=== PATIENT | female | born 1940 | race Asian ===

== ENCOUNTER 2019-02-25 14:22 | Inpatient (IN) | payer OTHER ==
[~2019-02-25] VITALS: Ht 167.6 cm; Wt 59.9 kg
[2019-02-25 14:52] VITALS: Ht 167.6 cm; Wt 59.9 kg
[2019-02-25 16:43] LABS: ALBUMIN 3.4 g/dL (3.4-5.0); ALKALINE PHOSPHATASE 57 U/L (46-116); ALT/SGPT 29 U/L (14-59); AST/SGOT 21 U/L (15-37); BILIRUBIN TOTAL 0.52 mg/dL (0.20-1.00); CALCIUM 9.3 mg/dL (8.5-10.1); CARBON DIOXIDE 31.5 mmol/L (21-32); CHLORIDE SERUM 101 mmol/L (98-107); CREATININE SERUM 1.2 mg/dL (0.6-1.0); GLUCOSE SERUM 217 mg/dL (74-106); SODIUM SERUM 139 mmol/L (136-145); TOTAL PROTEIN, SERUM 7.6 g/dL (6.4-8.2)
[2019-02-25 16:44] LABS: POTASSIUM SERUM 2.8 mmol/L (3.5-5.1)
[2019-02-25 16:54] LABS: BASOPHIL % 0.1 % (0-2); PLATELET COUNT 204 x10^3mcL (130-400); RED CELL DISTRIBUTION WIDTH 13.9 % (11.5-14.5)
[2019-02-25] MEDS ORDERED: ASPIR 8181 MG PO (18:25)
[2019-02-25] MEDS ORDERED: NOR10 PO (18:25)
[2019-02-25] MEDS ORDERED: HYDROCHLOROTHIA25 MG PO (18:25)
[2019-02-25] MEDS ORDERED: LOSARTAN POTASS50 M1 PO (18:25)
[2019-02-25 19:12] LABS: FREE T4 0.96 ng/dL (0.76-1.46); FREE THYROXINE INDEX 2.2 ug/dL (1.4-4.5); T4(THYROXINE) 6.2 ug/dL (4.7-13.3)
[2019-02-25 19:19] LABS: T3 TOTAL 1.02 ng/mL
[2019-02-25 19:29] LABS: CHOLESTEROL/HDL RATIO 2.2; MAGNESIUM 1.6 mg/dL (1.8-2.4); PHOSPHOROUS 1.8 mg/dL (2.5-4.9)
[2019-02-25 20:38] VITALS: BP 146/81
[2019-02-25 23:49] VITALS: BP 122/67
[2019-02-26 06:01] VITALS: BP 122/71
[2019-02-26 06:07] LABS: PLATELET COUNT 178 x10^3mcL (130-400); RED CELL DISTRIBUTION WIDTH 14.4 % (11.5-14.5)
[2019-02-26 06:57] LABS: BASOPHIL % 0 % (0-2)
[2019-02-26 08:25] LABS: CALCIUM 8.5 mg/dL (8.5-10.1); CARBON DIOXIDE 29.1 mmol/L (21-32); CHLORIDE SERUM 103 mmol/L (98-107); CREATININE SERUM 1.1 mg/dL (0.6-1.0); GLUCOSE SERUM 151 mg/dL (74-106); MAGNESIUM 1.4 mg/dL (1.8-2.4); PHOSPHOROUS 2.9 mg/dL (2.5-4.9); SODIUM SERUM 141 mmol/L (136-145)
[2019-02-26 08:42] LABS: POTASSIUM SERUM 2.9 mmol/L (3.5-5.1)
[2019-02-26 09:39] VITALS: BP 91/60
[2019-02-26 12:33] VITALS: BP 146/73
[2019-02-26 17:35] VITALS: BP 131/67
[2019-02-26 22:12] LABS: microscopic required? YES; urine erythrocyte 1+ (NEGATIVE)
[2019-02-27 06:33] LABS: BASOPHIL % 0.1 % (0-2); PLATELET COUNT 161 x10^3mcL (130-400); RED CELL DISTRIBUTION WIDTH 14.2 % (11.5-14.5)
[2019-02-27 06:41] VITALS: BP 99/58
[2019-02-27 07:04] LABS: CALCIUM 8.3 mg/dL (8.5-10.1); CARBON DIOXIDE 30.8 mmol/L (21-32); CHLORIDE SERUM 105 mmol/L (98-107); CREATININE SERUM 1.1 mg/dL (0.6-1.0); GLUCOSE SERUM 112 mg/dL (74-106); PHOSPHOROUS 2.6 mg/dL (2.5-4.9); SODIUM SERUM 141 mmol/L (136-145)
[2019-02-27 08:01] LABS: POTASSIUM SERUM 2.8 mmol/L (3.5-5.1)
[2019-02-27 09:09] VITALS: BP 118/65
[2019-02-27 13:16] VITALS: BP 106/63
[2019-02-27 17:26] VITALS: BP 109/65
[2019-02-27 21:03] VITALS: BP 113/65
[2019-02-28 05:10] VITALS: BP 125/70
[2019-02-28 08:09] LABS: BASOPHIL % 0.1 % (0-2); PLATELET COUNT 182 x10^3mcL (130-400); RED CELL DISTRIBUTION WIDTH 14.4 % (11.5-14.5)
[2019-02-28 08:22] LABS: CALCIUM 8.3 mg/dL (8.5-10.1); CARBON DIOXIDE 28.4 mmol/L (21-32); CHLORIDE SERUM 107 mmol/L (98-107); GLUCOSE SERUM 134 mg/dL (74-106); MAGNESIUM 1.9 mg/dL (1.8-2.4); PHOSPHOROUS 1.9 mg/dL (2.5-4.9); POTASSIUM SERUM 3.3 mmol/L (3.5-5.1); SODIUM SERUM 143 mmol/L (136-145)
[2019-02-28] MEDS ORDERED: NOR5 PO (09:21)
[2019-02-28] MEDS ORDERED: ELIQUIS5 MG PO (09:22)
[2019-02-28] MEDS ORDERED: LEVAQUIN750 MG PO (09:22)
[2019-02-28 09:41] VITALS: BP 112/62
[2019-02-28 10:02] VITALS: BP 112/62
== END 2019-02-28 10:50 | disposition home or self-care (01) | DRG 203 ==
LOC: ED 14:22 → DU 18:14
PROVIDERS: Emergency Medicine; ADMIT General Practice
DX: M94.0 Chondrocostal junction syndrome [Tietze] (principal); I48.0 Paroxysmal atrial fibrillation; N39.0 Urinary tract infection, site not specified; E83.42 Hypomagnesemia; I10 Essential (primary) hypertension; E87.6 Hypokalemia; Z79.82 Long term (current) use of aspirin
CPT/HCPCS: 36600; 83880; 84439; 85378; J0696; J1650; J1885; J2270; J3480; J3490; J7030; Q0092